=== PATIENT | male | born 1945 | race Caucasian/White ===

== ENCOUNTER → 2017-04-22 | Outpatient (CLI) | payer MEDICARE ==
[2015-04-03 15:17] VITALS: BP 129/59
[~2017-04-22] MED LIST: ASPI-482 PO; ATORVASTATIN CA80 MG PO; CARV6.25 PO; GLYB5TAB3 PO; INSU100I13 SQ; LOVA40TA2 PO; METF500T4 PO; NIAC500T PO
--- NOTE | 2017-04-22 08:41 | KCIC ---
INDICATION: Low back pain with left sciatica. Symptoms for one month, no known injury. TECHNIQUE: Sagittal T1, sagittal T2, sagittal STIR, axial T1, and axial T2 sequences are provided. No comparison is available. FINDINGS: Localizing series demonstrates mild dextrocurvature centered at L3. There is moderate edema noted in the T12 vertebral body, mostly along the superior endplate, probably degenerative in nature. Small Schmorl's node is noted in the superior endplate as well. Additional Schmorl's nodes and areas of mild endplate edema are noted throughout the lumbar spine. There is no subluxation. There is no worrisome marrow lesion. There is diffuse disc desiccation. Narrowing of disc height is greatest at L5-S1. Vacuum discs are suspected at several levels as well. The conus medullaris is normal in signal intensity and in position. Mild subcutaneous edema is noted. 2 probable right renal cysts are noted. The numbering system assumes 5 lumbar type vertebral bodies. Findings by individual level are as follows: L1-L2: Disc bulge and facet hypertrophy are noted with minimal right foraminal narrowing. L2-L3: Disc osteophyte complex is noted. Facet hypertrophy is greater on the left. There is mild canal stenosis. There is left lateral recess narrowing. There is [id number] left and mild right foraminal narrowing. L2-L3: Disc osteophyte complex is noted. There is a right foraminal/far lateral annular fissure. There is facet and ligamentum flavum hypertrophy. There is fluid in the facet joints. There is prominent epidural fat. There is moderate canal stenosis, midline AP diameter of the thecal sac 6-7 mm. There is lateral recess narrowing bilaterally. Foraminal narrowing bilaterally is moderate to severe. L4-L5: There is a diffuse disc bulge. There is a right paracentral extrusion-type herniation measuring 14 mm craniocaudal, at least 14 mm transverse, and 6 mm AP. There is facet and ligamentum flavum hypertrophy. There is moderate canal stenosis, with minimal CSF surrounding the nerve roots at this level. There is lateral recess narrowing bilaterally, greater on the right, could explain an L5 radiculopathy on either side. Right L5 nerve root is displaced by the herniation. Foraminal narrowing is moderate to severe. L5-S1: Disc osteophyte complex is eccentric to the right. There is mild right lateral recess narrowing which could explain a right S1 radiculopathy. There is contact with the S1 nerve root. There is also facet hypertrophy. There is mild left and moderate to severe right foraminal narrowing. There is also likely a synovial cyst on the right measuring 5 mm. IMPRESSION: 1. Degenerative changes in the lumbar spine, most notably at L3-L4 and L4-L5. Electronically signed by: Mathew Marte MD (04/22/2017 8:37 AM) [id number]
== END | disposition home or self-care (01) ==
LOC: KCIC MRI 07:48
PROVIDERS: ATTEND Physician Assistant
DX: M48.06 Spinal stenosis, lumbar region (principal); M47.896 Other spondylosis, lumbar region; M24.28 Disorder of ligament, vertebrae; M25.78 Osteophyte, vertebrae; M43.8X6 Other specified deforming dorsopathies, lumbar region; M51.46 Schmorl's nodes, lumbar region; N28.1 Cyst of kidney, acquired
CPT/HCPCS: 72148